=== PATIENT | female | born 1975 | race Asian ===

== ENCOUNTER 2023-05-31 12:50 | Emergency (ER) | payer OTHER, SELFPAY ==
[2023-05-31 12:52] VITALS: BP 162/82
[2023-05-31] MEDS: ZOFRAN ODT (ORALLY DISINTEGRATING) 4 MG PO ×2 (14:41→16:43)
[2023-05-31] MEDS: DILAUDID 1 MG IM (14:41)
--- NOTE | 2023-05-31 15:04 | EDRN ---
Dr. Bird w/ pt at this time.
--- NOTE | 2023-05-31 15:14 | ED.GENMED ---
History of Present Illness
General
Chief Complaint: Back Pain
Source: patient, records and spouse
Exam Limitations: none
Time Seen by Provider: 05/31/23 14:37
Nursing documentation reviewed up to this point in time: agreed with
Travel History
Have you had any contact with someone who has COVID-19?: No
Do you have any symptoms of coronavirus? Fever > 100 degrees, chills, cough, shortness of breath, sore throat, loss of taste or smell, muscle aches, or headache?: No
History of Present Illness
History of Present Illness:
48-year-old female history of herniated disc status post steroid injection by Dr. Finch presents with sharp pain in her right low back into her buttock and knee no trauma started last night worsened today she looks uncomfortable here rates the pain
is 20 out of 10 no fevers, does feel nauseous, no bowel or bladder changes, takes Tylenol and NSAIDs at home as needed
Past History
Past History
ED Past Medical History: Other (Cholesterol type 2 diabetes herniated disc)
ED Past Surgical History: , Orthopedic (Epidural steroid) and Other (Laparoscopy. Thyroidectomy)
Social History
Tobacco: Non-smoker
Alcohol: None
Drug: None
Personal:
Living: with family
Employment: Employed (Homemaker)
Review of Systems
Review of Systems
All Other Systems: Not applicable
Constitutional: Denies fever or fatigue
EENT: Reports no symptoms
Respiratory: Reports no symptoms
ABD/GI: Reports nausea
: Reports no symptoms
Musculoskeletal: Reports back pain
Neurological: Reports numbness; Denies weakness
Endocrine: Reports no symptoms
Phy Exam
Physical Exam
Physical Exam:
Physical Exam
General: 48-year female looks uncomfortable
Neck: Without jaundice
Heart: s1/s2 regular rate and rhythm, no murmur. equal radial pulses.
Lungs: no acute respiratory distress. clear bilaterally
Abdomen: Soft nontender
Neuro: alert and oriented painful straight leg raise on the right
Skin: no rash
Psychiatric: cooperative
Extremities: no edema.
Course
Orders/Labs/Results
Orders:
Orders
05/31/23 14:36
HYDROmorphone [Dilaudid] 1 mg IM NOW STA
Ondansetron Orally Disint [Zofran Odt (Orally Disintegrating)] 4 mg PO NOW STA
Vital Signs
Initial and Last Documented VS:
Initial Vital Signs
Temp Pulse Resp BP Pulse Ox
98 F 120 16 162/82 100
05/31/23 12:52 05/31/23 12:52 05/31/23 12:52 05/31/23 12:52 05/31/23 12:52
Last Documented Vital Signs
Temp Pulse Resp BP Pulse Ox
98 F 120 16 162/82 100
05/31/23 12:52 05/31/23 12:52 05/31/23 12:52 05/31/23 12:52 05/31/23 12:52
MDM/Problems Addressed
Differential Diagnosis Includes:
Sciatica herniated disc, lumbar radiculopathy no signs of epidural abscess or discitis no trauma
MDM/Problems Addressed:
Low back pain
Chronic conditions affecting care:
Radiculopathy
Acute Exacerbation and/or Progression of Chronic Illness:
Radiculopathy
*Radiology
Radiology exam reviewed: other (Most recent MRI noted)
*Pulse Oximetry
Patient hypoxic: no
*Critical Care Note
Total Time (30-74mins, 75-104mins- exclusive of procedures): Not Applicable
Data Reviewed
Review of Other/Old Records Reveals: Radiology Studies
Source: patient and spouse
Further Testing Considered But Not Given:
Repeat MRI not indicated
Update Note
Update Note:
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
ED Attending Note
-
Portions of this chart may have been created with voice recognition software.� Occasional wrong word or��sound alike� substitutions may have occurred due to the inherent limitations of voice recognition software.
Discharge Plan
Departure
Prescriptions:
No Action
rizatriptan [Maxalt] 10 MG tablet
10 mg PO PRN PRN (Reason: migraine)
lisinopril [Prinivil] 10 MG tablet
10 mg PO HS
metoprolol tartrate 50 MG tablet
50 mg PO HS
fenofibrate nanocrystallized 145 MG tablet
160 mg PO HS
tamoxifen 20 MG tablet
20 mg PO HS
acetaminophen 325 MG tablet
650 mg PO Q4HPRN PRN (Reason: moderate pain) Qty: 30 0RF
oxycodone 5 MG tablet
5 mg PO Q4HPRN PRN (Reason: severe pain) Qty: 10 0RF
Referrals:
Gabbie Biswas CRNP [Family Provider] -
Interventions
Interventions:
*Risk Screen - Suicide Last Done: 05/31/23 14:25
*General Assessment Last Done: 05/31/23 14:25
*Neglect/Abuse Screening Last Done: 05/31/23 14:25
ED- Fall Risk Assessment Last Done: 05/31/23 14:25
*ED COVID-19 Vaccine History Last Done: 05/31/23 14:25
[2023-05-31] MEDS: PERCOCET 5/325 1 TABLET PO (16:40)
[2023-05-31] MEDS: MOTRIN 600 MG PO (16:41)
== END 2023-05-31 17:10 | disposition home or self-care (01) ==
LOC: EMR 12:50
PROVIDERS: EMERGENCY PHYSICIAN Emergency Medicine; FAMILY PHYSICIAN Nurse Practitioner Family
DX: M51.16 Intervertebral disc disorders with radiculopathy, lumbar region (principal); R11.0 Nausea; E11.9 Type 2 diabetes mellitus without complications; Z88.2 Allergy status to sulfonamides; G43.909 Migraine, unspecified, not intractable, without status migrainosus; D64.9 Anemia, unspecified; E07.9 Disorder of thyroid, unspecified; Z85.3 Personal history of malignant neoplasm of breast; Z92.3 Personal history of irradiation
CPT/HCPCS: 99284; 96372

== ENCOUNTER → 2023-06-05 09:11 | Outpatient (REF) | payer OTHER, SELFPAY | LOC: PAVMRI 09:11 | PROVIDERS: ATTENDING PHYSICIAN Student in an Organized Health Care Education/Training Program | DX: M54.16 Radiculopathy, lumbar region (principal) | CPT/HCPCS: 72148 ==

== ENCOUNTER → 2023-12-18 18:19 | Outpatient (REF) | payer OTHER, SELFPAY | LOC: WDC 18:19 | PROVIDERS: ATTENDING PHYSICIAN Nurse Practitioner Family | DX: Z12.31 Encounter for screening mammogram for malignant neoplasm of breast (principal) | CPT/HCPCS: 77063; 77067 ==

== ENCOUNTER → 2023-12-31 10:15 | Outpatient (REF) | payer OTHER, SELFPAY | LOC: HWRAD 10:15 | PROVIDERS: ATTENDING PHYSICIAN Nurse Practitioner Family | DX: R10.31 Right lower quadrant pain (principal) | CPT/HCPCS: 76705 ==

== ENCOUNTER → 2024-02-12 11:36 | Outpatient (REF) | payer OTHER, SELFPAY | LOC: MRI 3T 11:36 | PROVIDERS: ATTENDING PHYSICIAN Nurse Practitioner Family | DX: R10.31 Right lower quadrant pain (principal) | CPT/HCPCS: 74183; A9575 ==

== ENCOUNTER 2024-07-10 06:17 | Day surgery (SDC) | payer OTHER, SELFPAY ==
[2024-07-10 07:47] LABS: Glucose - Point of Care 124 mg/dl (70-99)
== END 2024-07-10 09:08 | disposition home or self-care (01) ==
LOC: GI 06:17
PROVIDERS: ATTENDING PHYSICIAN Internal Medicine Gastroenterology
DX: R13.10 Dysphagia, unspecified (principal); K22.2 Esophageal obstruction
CPT/HCPCS: 43249; 82962

== ENCOUNTER → 2025-01-14 07:44 | Outpatient (REF) | payer OTHER, SELFPAY | LOC: HWWDC 07:44 | PROVIDERS: ATTENDING PHYSICIAN Nurse Practitioner Family | DX: Z12.31 Encounter for screening mammogram for malignant neoplasm of breast (principal) | CPT/HCPCS: 77063; 77067 ==